=== PATIENT | male | born 1980 | race Two or more races ===

== ENCOUNTER 2020-04-03 15:54 | Outpatient (REF) | payer MEDICARE, MEDICAID, SELFPAY | END 2020-04-03 15:55 | disposition home or self-care (01) | LOC: HO.LAB 15:54 | PROVIDERS: Visit Provider Internal Medicine | DX: Z20.828 Contact with and (suspected) exposure to other viral communicable diseases (principal) | CPT/HCPCS: C9803; U0003 ==